=== PATIENT | male | born 1970 | race Caucasian/White ===

== ENCOUNTER 2019-06-26 06:36 | Emergency (ER) | payer BC, SELFPAY ==
--- NOTE | ~2019-06-26 | XR_ITS ---
EXAMINATION: XR chest 2V DATE: 06/26/2019 07:09 INDICATION: Chest pain TECHNIQUE: frontal and lateral views of the chest were obtained. COMPARISON: Chest radiograph dated 09/30/2010 FINDINGS: The lungs remain clear with no focal airspace opacities, pulmonary edema, pleural effusion or pneumot horax. Symmetric nipple shadows project along the caudal margin of the bilateral anterior fifth ribs. The cardiomediastinal silhouette is normal. Minimal anterior wedging of multiple vertebral bodies in the mid and lower thoracic spine. IMPRESSION: 1. No acute cardiopulmonary disease. Reviewed, dictated and finalized at location A.
--- NOTE | ~2019-06-26 | US_ITS ---
EXAMINATION: US right upper quadrant DATE: 06/26/2019 08:09 INDICATION: Right upper quadrant tenderness TECHNIQUE: Multiple grayscale and Doppler ultrasound images of the abdomen were obtained. COMPARISON: None available FINDINGS: The head and and body of the pancreas are normal. The pancreatic tail is obscured by bowel gas. The liver is normal with normal echogenicity and echotexture. No surface nodularity. Normal hepa topetal flow in the main portal vein. The gallbladder is normal with no abnormal wall thickening, per icholecystic fluid or stones. The normal common bile duct measures 4 mm. There was no sonographic Mur phy sign. IMPRESSION: 1. Normal sonographic study of the gallbladder. No sonographic correlate for the patient's symptoms. Reviewed, dictated and finalized at location B. IMPRESSION: 1. Normal sonographic study of the gallbladder. No sonographic correlate for th e patient's symptoms.
[2019-06-26 06:40] VITALS: BP 124/77; PULSE 62; RESP 18; TEMP 36.9; O2SAT 95
--- NOTE | 2019-06-26 06:42 | ECG_ITS ---
Measurements Intervals [place] Rate: 63 P: 85 NE: 168 QRS: 102 QRSD: 106 T: 65 QT: 396 QTc: 407 Interpretive Statements SINUS RHYTHM RIGHT AXIS DEVIATION INCOMPLETE RIGHT BUNDLE BRANCH BLOCK BASELINE ARTIFACT- AVR, V1 BORDERLINE ECG Electronically Signed On 06-26-2019 7:25:48 CDT by Jerome Conklin D.O.
--- NOTE | 2019-06-26 06:52 | ED.CHESTPAIN ---
HPI - Chest Pain General Chief Complaint: Chest Pain Stated Complaint: chest pain Source: patient and family Mode of arrival: ambulatory Limitations: no limitations History of Present Illness HPI narrative: Is a 49-year-old male with a history of asthma, presents with a day history of right sided chest pain reproducible the right upper rib area with no shortness of breath no fever or chills no nausea vomiting no diaphoresis. Patient is a smoker, no abdominal pain no diarrhea or constipation. MD complaint: chest pain Onset (ago): day(s) Timing of current episode: constant Prior episodes: No Onset: during rest and during exertion Pain location: right chest Pain radiation: none Severity: moderate Pain scale (0-10): 8 Quality: aching Relieving factors: nothing Exacerbating factors: exertion Risk Factors Coronary artery disease risk factors: none Thoracic aortic dissection risk factors: none Related Data Home Medications Medication Instructions Recorded Confirmed fluticasone propionate [Flovent 2 puff INHALATION DIRECTED PRN 06/26/19 06/26/19 HFA] fluticasone propionate [Flovent 2 puff INHALATION BID 06/26/19 06/26/19 HFA] montelukast 10 mg PO DAILY 06/26/19 06/26/19 Review of Systems Review of Systems: All systems reviewed & are unremarkable except as noted in HPI and below PMFSH Past Medical History Medical History Asthma Exam Const: General: no acute distress and alert Orientation/consciousness: patient oriented x3 HENMT: Head: normal to inspection Eyes: Conjunctivae: conjunctivae normal Pupils: Equal, round and reactive pupils present Neck: Neck: normal visual inspection Chest: Chest palpation & inspection: normal inspection of the chest Other: Right-sided upper rib discomfort reproducible with palpation Resp: Effort & Inspection: normal respiratory effort Auscultation: clear to auscultation bilaterally Cardio: Rate: regular rate Rhythm: regular rhythm GI: Auscultation: normal bowel sounds Extrem: General: normal to inspection Psych: Mental Status: mental status grossly normal MDM - Chest Pain ECG Data EKG #1: ECG completion date: 06/26/19 ECG completion time: 06:56 Prior ECG tracings: not available for review EKG Interpretation: RBBB Critical Care Time Critical Care Time Critical Care Time: No Discharge Plan Discharge Clinical Impression: Chest pain Patient Disposition: Still a Patient Condition: Stable Prescriptions: No Action montelukast 10 mg tablet 10 mg PO DAILY RF: 0 Flovent HFA 220 mcg/actuation HFA aerosol inhaler 2 puff INHALATION BID RF: 0 Flovent HFA 110 mcg/actuation HFA aerosol inhaler 2 puff INHALATION DIRECTED PRN (Reason: Shortness Of Breath) RF: 0 Follow-up/Referrals: Marty Donaldson M.D. [Primary Care Provider] -
--- NOTE | 2019-06-26 07:02 | ED.CHESTPAIN ---
HPI - Chest Pain General Chief Complaint: Chest Pain Stated Complaint: chest pain Time Seen by Provider: 06/26/19 07:02 Source: patient and family Mode of arrival: ambulatory Limitations: no limitations History of Present Illness HPI narrative: 49-year-old man with a history of smoking and asthma comes in today complaining of pain below his right shoulder blade that comes around to his right side and abdomen. Patient states that in the last day or 2 it has been worse particularly when laying down. He states it is worse with movement and sometimes with a deep breath but he has no exacerbation of the pain with eating or exertion. He denies nausea, vomiting, diarrhea, shortness of breath, diaphoresis, or lightheadedness. He states he has had some problems with his gallbladder in the past. The last 2 years he has undergone a cardiac workup including a catheterization which revealed no cardiac disease. MD complaint: chest pain Pertinent past history: asthma Onset (ago): day(s) Timing of current episode: constant Pain location: right chest Pain radiation: other (Right flank and abdomen) Severity: moderate Quality: aching Relieving factors: nothing Exacerbating factors: exertion Risk Factors Coronary artery disease risk factors: none Related Data Home Medications Medication Instructions Recorded Confirmed fluticasone propionate [Flovent 2 puff INHALATION DIRECTED PRN 06/26/19 06/26/19 HFA] fluticasone propionate [Flovent 2 puff INHALATION BID 06/26/19 06/26/19 HFA] montelukast 10 mg PO DAILY 06/26/19 06/26/19 Review of Systems Constitutional: Constitutional: Denies chills, Denies fatigue, Denies fever(s) and Denies weakness Eyes: Eyes: Denies change in vision and Denies photophobia ENT: Denies dysphagia, Denies nasal congestion and Denies sore throat Cardiovascular: Cardiovascular: Reports chest pain and Reports radiating jaw, neck or arm pain Respiratory: Respiratory: Reports cough, Reports dyspnea and Reports wheezing Gastrointestinal: Gastrointestinal: Reports abdominal pain, Reports diarrhea, Reports nausea and Reports vomiting Musculoskeletal: Musculoskeletal: Reports back pain, Denies arthralgias and Denies joint swelling Integumentary/Breasts: Skin/Breast: Denies pruritus, Denies erythema and Denies rash Neurologic: Denies vertigo, Denies dizziness and Denies syncope Psychiatric: Psychiatric: Denies anxiety and Denies depression Endocrine: Endocrine: Denies polydipsia and Denies polyuria Hematologic/Lymphatic: Hematologic/Lymphatic: Denies easy bleeding and Denies easy bruising Allergic/Immunologic: Allergic/Immunologic: Denies lip swelling and Denies wheezing [facility] Past Medical History Medical History Asthma Social History Social History (Updated 06/26/19 @ 08:28 by Shane Velazquez MD) Smoking status: Current every day smoker Alcohol use details: Socially Substance use: never Living arrangements: with family Exam Const: General: no acute distress and alert Orientation/consciousness: patient oriented x3 Limitations: no limitations HENMT: Head: normal to inspection Ears: external ears normal, TM's normal bilaterally and EAC's normal Mouth: Yes Normal oral and palatal mucosa present and Yes moist mucous membranes Eyes: Conjunctivae: conjunctivae normal Pupils: Equal, round and reactive pupils present EOM: EOMs intact bilaterally Resp: Effort & Inspection: normal respiratory effort and not labored Auscultation: clear to auscultation bilaterally, no rales, no rhonchi and no wheezes Cardio: Rate: regular rate Rhythm: regular rhythm Heart sounds: no murmurs GI: Auscultation: normal bowel sounds Other: [id number] tenderness to palpation the right upper quadrant. No guarding, percussion tenderness, or masses. Skin: General skin exam: normal color, no jaundice and no pallor Rashes: no rashes Neuro: Gen
[2019-06-26 07:03] LABS: Basophils Absolute Auto 0.05 K/mm3 (0.00-0.10); Basophils Percent Auto 0.6 % (0.0-1.0); Eosinophils Absolute Auto 0.16 K/mm3 (0.02-0.50); Hematocrit 43.3 % (40.0-54.0); Hemoglobin 15.5 g/dL (14.0-18.0); Immature Granulocyte Absolute 0.02 K/mm3 (0.00-0.00); Immature Granulocyte Percent A 0.3 % (0.0-0.0); Lymphocytes Absolute Auto 2.12 K/mm3 (1.10-4.50); Lymphocytes Percent Auto 27.1 % (18.0-42.0); Mean Corpuscular HGB Conc 35.8 g/dL (32.0-36.0); Mean Corpuscular Hemoglobin 34.1 pg (27.0-31.0); Mean Corpuscular Volume 95.4 fL (78.0-102.0); Mean Platelet Volume 8.6 fl (8.7-11.0); Monocytes Absolute Auto 0.77 K/mm3 (0.10-0.90); Monocytes Percent Auto 9.8 % (2.0-11.0); Neutrophils Absolute Auto 4.7 K/mm3 (1.7-7.2); Neutrophils Percent Auto 60.2 % (50.0-70.0); Platelet Count Result 242 K/mm3 (150-420); Red Blood Count 4.54 M/mm3 (4.70-6.10); Red Cell Distribution Width 12.6 % (11.6-14.4); White Blood Count 7.8 K/mm3 (4.8-10.8)
[2019-06-26 07:19] LABS: D Dimer 0.24 mg/L (0.19-0.50); Partial Thromboplastin Time 25.2 SEC (22.3-31.6); Prothrombin Time 10.8 Seconds (9.64-11.0)
[2019-06-26 07:23] LABS: Alanine Aminotransferase 82 U/L (16-63); Albumin Level 3.7 g/dL (3.4-5.0); Alkaline Phosphatase 86 U/L (46-116); Anion Gap 11.2 mmol/L (7-16); Aspartate Amino Transferase 46 U/L (15-37); Bilirubin,Total 0.6 mg/dL (0.00-1.00); Blood Urea Nitrogen 13 mg/dL (7-18); Calcium 8.9 mg/dL (8.5-10.1); Carbon Dioxide 26 mmol/L (21-32); Chloride 104 mmol/L (98-108); Estimated CRCL calculation 70 ml/min; Estimated Glomerular Filt Rate > 60; Glucose 98 mg/dL (70-99); Lipase 122 U/L (73-393); Osmolality Calculated 284 mOsm/kg (285-295); Potassium 4.2 mmol/L (3.5-5.1); Sodium 137 mmol/L (136-145); Total Protein 7.6 g/dL (6.4-8.2)
[2019-06-26 07:24] LABS: Troponin I < 0.02 ng/mL (0.00-0.056)
[2019-06-26 08:32] VITALS: BP 125/61; PULSE 60; RESP 20; O2SAT 95
== END 2019-06-26 08:37 | disposition home or self-care (01) ==
PROVIDERS: Emergency Medicine; Emergency Provider Emergency Medicine; PCP Family Medicine
DX: R07.9 Chest pain, unspecified (principal); F17.200 Nicotine dependence, unspecified, uncomplicated
CPT/HCPCS: 36415; 71046; 76705; 80053; 83690; 84484; 85025; 85380; 85610; 85730; 93005; 99284

== ENCOUNTER 2021-06-01 07:00 | Outpatient (CLI) | payer BC, OTHER, SELFPAY ==
[2021-06-01 09:22] LABS: Erythrocyte Sedimentation Rate 8 mm/hr (0-20)
[2021-06-01 10:32] LABS: RFT Charge Test YES; Rheumatoid Factor Screen Positive (Negative)
[2021-06-01 11:09] LABS: CRP < 0.5 mg/dL (0.0-0.9)
== END 2021-06-01 07:01 ==
PROVIDERS: PCP Family Medicine
DX: M79.642 Pain in left hand (principal); M79.641 Pain in right hand
CPT/HCPCS: 36415; 85652; 86140; 86430; 86431

== ENCOUNTER 2021-07-19 07:34 | Outpatient (CLI) | payer BC, OTHER, SELFPAY ==
[2021-07-19 09:15] LABS: Alanine Aminotransferase 62 U/L (16-63); Aspartate Amino Transferase 34 U/L (15-37); Prostate Specific Antigen 1.5 ng/mL (< OR = 4.0)
== END 2021-07-19 07:35 | disposition home or self-care (01) ==
LOC: CHSLAB 07:41
PROVIDERS: PCP Family Medicine; Visit Provider Nurse Practitioner Family
DX: Z12.5 Encounter for screening for malignant neoplasm of prostate (principal); M79.641 Pain in right hand; M79.642 Pain in left hand
CPT/HCPCS: 36415; 84153; 84450; 84460; G0103

== ENCOUNTER 2021-09-10 11:33 | Emergency (ER) | payer BC, OTHER, SELFPAY ==
--- NOTE | ~2021-09-10 | XR_ITS ---
XR ankle RT min 3V 09/10/2021 12:37 INDICATION: Right ankle pain PROCEDURE: 4 views right ankle COMPARISON: No prior studies for comparison. FINDINGS: Fracture, dislocation or subluxation is not identified. Ankle mortise intact. The soft tiss ues appear within normal limits. No foreign bodies are identified. IMPRESSION: 1: NO ACUTE BONE OR JOINT ABNORMALITY IDENTIFIED. Reviewed, dictated and finalized at location A.
--- NOTE | ~2021-09-10 | XR_ITS ---
XR knee RT 3V 09/10/2021 12:37 Indication: Right knee pain after twisting injury Procedure: 3 views right knee Comparison: No prior studies for comparison. Findings: There is chondrocalcinosis. Mild osteoarthritis of the patellofemoral compartment. No fract ure or traumatic malalignment. Impression: 1: Chondrocalcinosis with mild osteoarthritis of the patellofemoral compartment. Reviewed, dictated and finalized at location A. Impression: 1: Chondrocalcinosis with mild osteoarthritis of the patellofemoral compartment .
--- NOTE | 2021-09-10 11:51 | ED.SOB ---
HPI - SOB/Dyspnea General Chief Complaint: Extremity Injury, Lower Stated Complaint: knee pain Time Seen by Provider: 09/10/21 11:51 Source: patient Mode of arrival: ambulatory History of Present Illness HPI Narrative: 51-year-old male smoker with a history of asthma was diagnosed with pneumonia 10 days ago for hich she is on an antibiotic. He presents with -- ongoing cough with yellow sputum -- shortness of breath MD elicited complaint: shortness of breath and cough Related Data Home Medications Medication Instructions Recorded Confirmed fluticasone propionate 110 2 puff inhalation DIRECTED PRN 06/26/19 06/26/19 mcg/actuation HFA aerosol inhaler Shortness Of Breath (Flovent HFA) fluticasone propionate 220 2 puff inhalation BID 06/26/19 06/26/19 mcg/actuation HFA aerosol inhaler (Flovent HFA) montelukast 10 mg tablet 10 mg PO DAILY 06/26/19 06/26/19 PMFSH Past Medical History Medical History (Updated 06/27/19 @ 00:00 by Emil Cannon) Asthma Social History Social History (Updated 06/26/19 @ 08:28 by Shane Velazquez MD) Smoking status: Current every day smoker Alcohol use details: Socially Substance use: never Discharge Plan Discharge Prescriptions: No Action montelukast 10 mg tablet 10 mg PO DAILY Flovent HFA 220 mcg/actuation HFA aerosol inhaler 2 puff INHALATION BID Flovent HFA 110 mcg/actuation HFA aerosol inhaler 2 puff INHALATION DIRECTED PRN (Reason: Shortness Of Breath) Follow-up/Referrals: Marty Donaldson M.D. [Primary Care Provider] -
[2021-09-10 11:57] VITALS: BP 108/69; PULSE 77; RESP 18; TEMP 36.6; O2SAT 97
--- NOTE | 2021-09-10 12:03 | ED.LOWEXIN ---
HPI - Extremity Injury (Lower) General Chief Complaint: Extremity Injury, Lower Stated Complaint: knee pain Time Seen by Provider: 09/10/21 11:51 Source: patient Mode of arrival: ambulatory History of Present Illness HPI Narrative: 51-year-old male smoker with a history of asthma, negative cardiac catheterization twisted his right lower extremity 2-3 weeks ago. He presents to the ER with -- right knee pain with intermittent swelling off and on for the past 1 week -- right ankle pain off and on for the past 1 week after he twisted his right ankle. The patient is ambulatory. MD complaint: knee injury and ankle injury Onset (ago): week(s) ( Pain off and on for the past 1 week after he twisted his ankle 2-3 weeks ago) Injury: Right: knee and ankle Type of Injury: inversion Place: street/outdoors Severity: mild Relieving factors: immobilization Exacerbating factors: movement Associated symptoms: swelling Other symptoms: none Treatments prior to arrival: cold therapy Related Data Home Medications Medication Instructions Recorded Confirmed fluticasone propionate 110 2 puff inhalation DIRECTED PRN 06/26/19 09/10/21 mcg/actuation HFA aerosol inhaler Shortness Of Breath (Flovent HFA) montelukast 10 mg tablet 10 mg PO DAILY 06/26/19 09/10/21 celecoxib 200 mg capsule 1 cap BID 09/10/21 09/10/21 clobetasol 0.05 % topical ointment 1 ea topical TID 09/10/21 09/10/21 Allergies Allergy/AdvReac Type Severity Reaction Status Date / Time No Known Allergies Allergy Verified 09/10/21 12:07 Review of Systems Review of Systems: All systems reviewed & are unremarkable except as noted in HPI and below Constitutional: Constitutional: Reports as per HPI and Reports no additional constitutional complaints Eyes: Eyes: Reports as per HPI and Reports no additional eye complaints ENT: Reports system reviewed and no additional complaints, except as documented and Reports as per HPI Cardiovascular: Cardiovascular: Reports as per HPI and Reports no additional cardiovascular complaints Respiratory: Respiratory: Reports as per HPI and Reports no additional respiratory complaints Gastrointestinal: Gastrointestinal: Reports as per HPI and Reports no additional gastrointestinal complaints Genitourinary: Genitourinary: Reports no additional male genitourinary complaints and Reports as per HPI Musculoskeletal: Musculoskeletal: Reports no additional musculoskeletal complaints and Reports as per HPI Comments: right ankle and knee pain with swelling Integumentary/Breasts: Skin/Breast: Reports system reviewed and no additional complaints, except as docu and Reports as per HPI Neurologic: Reports system reviewed and no additional complaints, except as documented and Reports as per HPI Psychiatric: Psychiatric: Reports no additional psychiatric complaints and Reports as per HPI Endocrine: Endocrine: Reports no additional endocrine complaints and Reports as per HPI Hematologic/Lymphatic: Hematologic/Lymphatic: Reports no additional hematologic/lymphatic complaints and Reports as per HPI Allergic/Immunologic: Allergic/Immunologic: Reports no additional allergic/immunologic complaints and Reports as per HPI [facility] Past Medical History Medical History (Updated 09/10/21 @ 12:50 by Bipin Palmer MD) Asthma Social History Social History Smoking status: Current every day smoker Alcohol use details: Socially Substance use: never Exam Const: General: healthy appearing, no acute distress and alert Nutritional Appearance: well nourished Orientation/consciousness: patient oriented x3 Limitations: no limitations HENMT: Head: normal to inspection Ears: external ears normal General nose exam: Normal external nose present Face and sinus: normal facial exam Mouth: Yes Normal oral and palatal mucosa present Throat: posterior oropharynx normal Eyes: Conjunctivae: conjunctiv
--- NOTE | 2021-09-10 12:10 | PC.NURSE ---
Pt pre-registered OPTICAL MANAGER at 's request. Arrived at 11:55
[2021-09-10 12:57] VITALS: BP 124/81; PULSE 86; RESP 16; TEMP 36.8; O2SAT 97
== END 2021-09-10 12:57 | disposition home or self-care (01) ==
PROVIDERS: Emergency Provider Internal Medicine Critical Care Medicine; PCP Family Medicine
DX: M11.261 Other chondrocalcinosis, right knee (principal); M25.561 Pain in right knee; S93.401A Sprain of unspecified ligament of right ankle, initial encounter
CPT/HCPCS: 73562; 73610; 99284

== ENCOUNTER 2022-09-03 07:20 | Outpatient (CLI) | payer BC, OTHER, SELFPAY ==
[2022-09-03 08:34] LABS: Alanine Aminotransferase 36 U/L (16-63); Albumin Level 3.6 g/dL (3.4-5.0); Alkaline Phosphatase 104 U/L (46-116); Anion Gap -2 mmol/L (8-16); Aspartate Amino Transferase 28 U/L (15-37); Bilirubin,Total 0.4 mg/dL (0.00-1.00); Blood Urea Nitrogen 24 mg/dL (7-18); Calcium 8.5 mg/dL (8.5-10.1); Carbon Dioxide 28 mmol/L (21-32); Chloride 97 mmol/L (98-108); Cholesterol 141 mg/dL (0-200); Estimated Glomerular Filt Rate > 60; Glucose 89 mg/dL (70-99); HDL Direct 60 mg/dL (40-60); LDL Cholesterol Calculated 68 mg/dL (<130); Osmolality Calculated 259 mOsm/kg (285-295); Potassium 3.7 mmol/L (3.5-5.1); Prostate Specific Antigen 1.7 ng/mL (< OR = 4.0); Sodium 123 mmol/L (136-145); Total Protein 7.2 g/dL (6.4-8.2); Triglycerides 67 mg/dL (0-150)
== END 2022-09-03 07:21 | disposition home or self-care (01) ==
LOC: CHSLAB 07:23
PROVIDERS: PCP Family Medicine; Visit Provider Family Medicine
DX: Z13.220 Encounter for screening for lipoid disorders (principal); Z12.5 Encounter for screening for malignant neoplasm of prostate
CPT/HCPCS: 36415; 80053; 80061; 84153; G0103

== ENCOUNTER 2022-09-03 07:28 | Outpatient (CLI) | payer OTHER, SELFPAY ==
--- NOTE | ~2022-09-03 | XR_ITS ---
EXAMINATION: XR_[id number]_CR DATE: 09/03/2022 08:11 INDICATION: Displaced fracture of lateral condyle. TECHNIQUE: 2 views of right knee were obtained. COMPARISON: Right knee radiographs 04/15/22 FINDINGS: Bone alignment is normal. There is a nondisplaced oblique fracture of tibial metaphysis. Th ere is mild tricompartmental osteoarthritis characterized by tiny osteophytes. There is chondrocalcin osis of the menisci. There is a small knee joint effusion. IMPRESSION: 1. Nondisplaced oblique fracture of tibial metaphysis. 2. Mild right knee osteoarthritis. 3. Small right knee joint effusion. Reviewed, dictated and finalized at location A.
== END 2022-09-03 07:29 | disposition home or self-care (01) ==
LOC: CHSIMG 07:31
PROVIDERS: PCP Family Medicine; Visit Provider Orthopaedic Surgery
DX: S82.121A Displaced fracture of lateral condyle of right tibia, initial encounter for closed fracture (principal); M17.11 Unilateral primary osteoarthritis, right knee; M25.461 Effusion, right knee
CPT/HCPCS: 73560

== ENCOUNTER 2022-10-15 07:36 | Outpatient (CLI) | payer OTHER, SELFPAY ==
--- NOTE | ~2022-10-15 | XR_ITS ---
Right Knee Technique: AP, lateral, and sunrise views were obtained. Clinical History: Injury Findings: No fracture or dislocation is seen. Osseous alignment is anatomic. Minimal patellar spurrin g noted. Chondrocalcinosis of the menisci noted. No joint effusion is seen. Impression: No acute abnormality. Minimal patellar spurring. Chondrocalcinosis of the menisci. Reviewed, dictated and finalized at location M. Impression: No acute abnormality. Minimal patellar spurring. Chondrocalcinosis of the menisci.
== END 2022-10-15 07:37 | disposition home or self-care (01) ==
PROVIDERS: PCP Family Medicine; Visit Provider Orthopaedic Surgery
DX: S62.121A Displaced fracture of lunate [semilunar], right wrist, initial encounter for closed fracture (principal); M11.261 Other chondrocalcinosis, right knee
CPT/HCPCS: 73562

== ENCOUNTER 2023-02-04 07:21 | Outpatient (CLI) | payer OTHER, SELFPAY ==
--- NOTE | ~2023-02-04 | XR_ITS ---
Right Knee Technique: AP, lateral, and sunrise views were obtained. Clinical History: Lateral tibial fracture COMPARISON: 10/15/2022 Findings: No fracture or dislocation is seen. Osseous alignment is anatomic. Joint spaces are preserv ed without degenerative or erosive change. Chondrocalcinosis of the menisci noted. No joint effusion is seen. Impression: No acute reality seen. Chondrocalcinosis of the menisci. Reviewed, dictated and finalized at location M. ER ASSISTANT Impression: No acute reality seen. Chondrocalcinosis of the menisci.
== END 2023-02-04 07:22 | disposition home or self-care (01) ==
PROVIDERS: PCP Family Medicine; Visit Provider Orthopaedic Surgery
DX: S82.121A Displaced fracture of lateral condyle of right tibia, initial encounter for closed fracture (principal); M11.261 Other chondrocalcinosis, right knee
CPT/HCPCS: 73562

== ENCOUNTER 2023-02-16 08:11 | Outpatient (CLI) | payer OTHER, SELFPAY ==
--- NOTE | ~2023-02-16 | MR_ITS ---
EXAMINATION: MR knee RT wo con DATE: 02/16/2023 09:02 INDICATION: Other tear of lateral meniscus. Posterior knee pain. TECHNIQUE: Magnetic resonance imaging (MRI) of the right knee was performed without intravenous contr ast. Sequences included axial PD-weighted FS FSE, coronal PD-weighted FSE and PD-weighted FS FSE, sag ittal PD-weighted FSE, and sagittal T2-weighted FS FSE. COMPARISON: Right knee radiographs 02/04/2023 FINDINGS: Osseous/other: There is a comminuted fracture of proximal tibia involving the medial and lateral condyles, intercond ylar eminence, and medial metaphysis. At the lateral tibial condyle, there is up to 4 mm depression o f the articular surface. There is edema-like marrow signal intensity around the fracture lines. There is edema-like marrow signal intensity at medial aspect of medial femoral condyle, likely stress reac tion. Medial compartment: There is a radial tear of body of medial meniscus. There is cartilage surface irregularity of tibial condyle. Lateral compartment: There is a complex tear involving the anterior horn, body, and posterior horn of lateral meniscus. Th ere is partial-thickness cartilage loss of femoral condyle and tibial condyle, deep at posterior tibi al condyle. Patellofemoral compartment: There is deep cartilage fissuring of patellar medial facet and lateral facet. There is cartilage surf herman irregularity of patellar median ridge. Trochlear cartilage is normal. Ligaments and tendons: The anterior and posterior cruciate ligaments are normal. Medial collateral ligament is intact. There are changes of prior sprain of fibular collateral ligament characterized by thickening and increased signal intensity. There is mild patellar tendinopathy. Fluid: There is a small knee joint effusion. There is a small Rice's cyst. IMPRESSION: 1. Subacute bicondylar tibial plateau fracture. 2. Moderate chondrosis of lateral and patellofemoral compartments and mild chondrosis of medial benita rtment. 3. Tears of medial and lateral menisci. 4. Small knee joint effusion. 5. Small Rice's cyst. Reviewed, dictated and finalized at location A. OLOGY ASSISTANT IMPRESSION: 1. Subacute bicondylar tibial plateau fracture. 2. Moderate chondrosis of lateral and patellofemoral compartments and mild delfino drosis of medial compartment. 3. Tears of medial and lateral menisci. 4. Small knee joint effusion. 5. Small Rice's cyst.
== END 2023-02-16 08:12 | disposition home or self-care (01) ==
LOC: CHSIMG 08:12
PROVIDERS: PCP Orthopaedic Surgery; Visit Provider Orthopaedic Surgery
DX: S82.141A Displaced bicondylar fracture of right tibia, initial encounter for closed fracture (principal); M22.2X1 Patellofemoral disorders, right knee; S83.241A Other tear of medial meniscus, current injury, right knee, initial encounter; S83.281A Other tear of lateral meniscus, current injury, right knee, initial encounter; M25.461 Effusion, right knee; M71.21 Synovial cyst of popliteal space [Baker], right knee
CPT/HCPCS: 73721

== ENCOUNTER 2023-03-20 10:40 | Outpatient (CLI) | payer OTHER, SELFPAY ==
--- NOTE | 2023-03-20 10:42 | ECG_ITS ---
Measurements Intervals [place] Rate: 69 P: 80 RI: 144 QRS: 113 QRSD: 121 T: 55 QT: 389 QTc: 418 Interpretive Statements SINUS RHYTHM WITH PREMATURE ATRIAL CONTRACTION RIGHT VENTRICULAR HYPERTROPHY NONSPECIFIC INTRAVENTRICULAR CONDUCTION DELAY ABNORMAL ECG COMPARED TO ECG 06/26/2019 06:44:21 PREMATURE ATRIAL CONTRACTIONS ARE NOW PRESENT RIGHT VENTRICULAR HYPERTROPHY NOW PRESENT Electronically Signed On 03-20-2023 15:26:04 TURNSTILE COLLECTOR by Jass Meade M.D.
== END 2023-03-20 10:41 | disposition home or self-care (01) ==
LOC: CHSCARD 10:42
PROVIDERS: PCP Family Medicine; Visit Provider Anesthesiology
DX: Z01.818 Encounter for other preprocedural examination (principal); F17.210 Nicotine dependence, cigarettes, uncomplicated; R94.31 Abnormal electrocardiogram [ECG] [EKG]
CPT/HCPCS: 93005

== ENCOUNTER 2023-03-21 00:26 | Day surgery (SDC) | payer OTHER, SELFPAY ==
[2023-03-18 12:06] VITALS: BMI 26.2
--- NOTE | 2023-03-18 12:11 | PC.NURSE ---
Report to the Outpatient Waiting Room, entrance under the green pavilion located off [facility], at time 1100 on date 03/21/23. Planned Procedure Time: 1300. Time changes happen often and if your time is changed the preop area will call you the afternoon before. - You and your visitor will be asked to self-screen and do not enter if you have any COVID symptoms. - A mask is optional within the hospital at this time. Patients may have clear liquids (water, carbonated beverages, clear teas, apple juice) until 3 hours prior to surgery with a maximum of 20 ounces. - No food from midnight until time of surgery Take the following medications with a SIP of water the morning of surgery: N/A DO NOT STOP ANY OF YOUR OTHER PRESCRIPTION MEDICATIONS PRIOR TO SURGERY ?EXCEPT THE FOLLOWING Medications to discontinue per physician: N/A Date to take last dose: N/A Please no make-up, nail kiswahili, hairspray, perfume, deodorant, or body powder the day of surgery. No jewelry (including any body piercings) or valuables the day of surgery, leave them at home. Please take a shower or bath the night before, or the morning of, surgery with an antibacterial soap. Wear comfortable, loose fitting clothing. - Jewelry must be removed prior to entering the operating room. Rings and piercings that are not removed may be cut off. - The hospital will not accept responsibility for valuables. - Please leave all valuables, including medications, at home the day of surgery. If you are going home after surgery, a licensed sanitation truck driver must drive you home. - NO public transportation without another adult if you receive anesthesia. - We recommend that an adult stay with you for 24 hours following discharge. - We also recommend that you do not drive, make important decision, drink alcoholic beverages, or take any drugs that were not prescribed by your health care provider for at least 24 hours after your discharge time. Follow any additional instructions given to you from your surgeon. If you or anyone in your household have experienced Covid symptoms in the past week, please notify your surgeon or the nurse liaison at the phone number below for possible testing. Telephone instructions given to PT - BJ ENG and asked if any additional questions and then verbalized understanding. Patient advised to call surgeon office or pre surgery nurse liaison [phone] if any additional questions.
--- NOTE | 2023-03-20 13:56 | P.PNAN_ITS ---
Anes - Initial Pre Proc Eval Procedure: Operation Date: 03/21/23 13:00 Proposed Procedures p Right Knee Arthroscopy with Partial Meniscectomy, Debride Meniscus Chondroplasty, Synovectomy, Proceed As Indicated - Filiberto Kyle MD Date/Time: 03/20/23 13:56 Surgeon: Filiberto Kyle MD Pre Op Diagnosis: rt knee pain, rt meniscal tear,chondromalacia-cont Patient Data Age: 53 Gender: M Height: 1.69 m Weight: 74.85 kg Allergies Allergy/AdvReac Type Severity Reaction Status Date / Time No Known Allergies Allergy Verified 03/18/23 12:05 Home Medications Medication Instructions Recorded Confirmed Type No Home Medications 03/18/23 03/18/23 History Patient hx anesthesia problems: none Family hx anesthesia problems: none Results Review: All pre-operative results and documents have been reviewed as part of the pre- operative evaluation. [facility] Past Medical History Medical History (Updated 03/20/23 @ 13:56 by Abbe May DO) Arrhythmia Asthma Closed fracture of lateral portion of right tibial plateau RBBB Tear of meniscus of right knee Family History Family History Unknown Diabetes mellitus Cerebrovascular accident Lung disease Social History Social History Smoking packs per day: 1 Smoking cigarettes per day: 20.0 Years smoked: 35 Smoking pack-years: 35.00 Smoking status: Current every day smoker Tobacco type: cigarettes Alcohol intake: current Alcohol use details: RARE Substance use: never Substance use type: does not use Living arrangements: with family Occupation/Education: occupation Additional occupation/education comments: [employer] Gender identity (if verbalized by the patient): Male Sexual Orientation (if Verbalized by the Patient): Straight or Heterosexual Spiritual care concerns: No Anes - Eval Final PreProcedure Day of Procedure 03/20/23 13:56 Patient weight: overweight Heart: regular rate and rhythm Lungs: clear to auscultation Airway: Mallampati scale class II Neurological: alert and oriented Last oral intake: >/= 8 hours ASA classification: III Emergent: no Anesthetic plan: proceed Anesthesia type and monitoring: general LMA and standard monitoring Results Review: All pre-operative results and documents have been reviewed as part of the pre- operative evaluation. Informed Consent: The patient's anesthetic plan and its attendant risks and benefits were discussed with the patient/family/POA. Questions were solicited and answers provided to the satisfaction of the patient/family/POA.
[2023-03-21] VITALS (8 sets, daily range): BP systolic 108–129; BP diastolic 66–83; PULSE 59–93; RESP 13–18; TEMP 36.6–36.7; O2SAT 93–100
[2023-03-21] MEDS: LACTATED RINGERS 1,000 ML 30 ML IV CONT ×2 (11:15→14:12)
--- NOTE | 2023-03-21 11:16 | WPDHPUPDATE1 ---
History and Physical Update Update Date/Time: 03/21/23 11:16 History and Physical has been reviewed, including an updated exam of the patient. There are NO changes in the patient's condition. Risks, benefits, and alternatives have been discussed and questions answered. Patient agrees to proceed with procedure.
[2023-03-21] MEDS: KETOROLAC 15 MG/ML VIAL (*BKC) IV PUSH (12:21)
[2023-03-21] MEDS: ACETAMINOPHEN 500 MG TABLET 1000 MG PO (12:21)
[2023-03-21] MEDS: ceFAZolin 2 GM/D5W 50 ML 2 GM/50 ML BAG IVPB (13:03)
[2023-03-21] MEDS: BUPivacaine HCL 0.25% PF 30 ML VIAL 10 ML INFILTRATE (13:34)
[2023-03-21] MEDS: BUPIVACAINE/EPINEPHRINE 0.5% 50 ML VIAL 10 ML INFILTRATE (13:34)
--- NOTE | 2023-03-21 14:21 | P.OP_ITS ---
Procedure Note - Detailed Date of Procedure 03/21/23 Pre-op Diagnosis rt knee pain, rt meniscal tear,chondromalacia-cont Post-op Diagnosis Same Procedure Performed Right knee arthroscopy with synovectomy, medial and lateral partial menisc ectomy. Surgeon Filiberto Kyle MD Anesthesia General Indications 53-year-old who fell and injured his right knee while at work. Noted to have a lateral tibial plateau fracture treated non operatively. He has gone on to heal the fracture but has continued pain at the knee. MRI demonstrates meniscus tear with good healing of fracture. He presents for operative treatment. Findings Right knee body and anterior horn lateral meniscus tear, complex with displacement into the joint. Posterior horn medial meniscus tear, complex minimal displacement. Both meniscus tears unrepairable. Intact ACL PCL. Grade 1 chondromalacia medial femoral condyle. Grade 1 chondromalacia patellofemoral articulation. Extensive synovitis anterior knee medial and lateral compartments. Description of Procedure Patient failed non operative treatment with therapy, home exercises, activity modifications and anti-inflammatories. Pain on a daily basis with weight- bearing activity. Presents now for operative treatment. Informed consent given by patient. Operative extremity marked in preoperative holding area. Patient received intravenous antibiotics. Patient brought to operating room and underwent general anesthetic by anesthesia team. Positioned supine on operating room table. Right leg placed into a posterior thigh leg somers. Foot of the table dropped to 90? and left leg padded out of the field. Time-out performed confirming patient, site of surgery and plan. right knee prepped and draped in usual sterile surgical fashion using ChloraPrep skin solution. Standard arthroscopic portals made by using a 11 blade knife for the anterior lateral portal 1st. Capsule penetrated bluntly. Camera and inflow started. The above operative findings noted. Intra-articular visualization used to position the anterior medial portal using 22 gauge spinal needle. A 11 blade knife used for the skin and blunt penetration of the capsule. 4.7 millimeter arthroscopic shaver introduced and partial medial meniscectomy of the loose and torn portion performed. Shaver then positioned in the lateral compartment and partial lateral meniscectomy performed. Edge of meniscus completed with arthroscopic Wand. Arthroscopic Wand used to perform chondroplasty of the patellofemoral articulation and the medial femoral condyle. Shaver reintroduced and a synovectomy performed of the anterior fat pad and extensive synovium as well as medial and lateral plica. Bleeding points coagulated with Wand. Knee inspected, no loose pieces noted. 1 liter of irrigant infused and suction out. Arthroscopic cannulas removed. Skin closed with 4 nylon interrupted suture. Local anesthetic with 0.25% Marcaine. Sterile dressing applied. Patient awoken from anesthesia, extubated and taken to recovery room in stable condition. All sponge needle and instrument counts correct at the end of the case. Estimated Blood Loss 5 Tourniquet Time Total Tourniquet Time: 0 Drains No Packing No Pathology None sent Complications None Condition Stable Disposition PACU [facility] Billing Surgery - Charge Forward: Surgery Billing ([id number], [id number])
== END 2023-03-21 16:01 | disposition home or self-care (01) ==
PROVIDERS: PCP Family Medicine; Visit Provider Orthopaedic Surgery
PROC: (CPT 29870; principal; 2023-03-21 13:00)
DX: S83.271A Complex tear of lateral meniscus, current injury, right knee, initial encounter (principal); S83.231A Complex tear of medial meniscus, current injury, right knee, initial encounter; M22.41 Chondromalacia patellae, right knee; M65.861 Other synovitis and tenosynovitis, right lower leg; W11.XXXA Fall on and from ladder, initial encounter; Y92.9 Unspecified place or not applicable; Y99.0 Civilian activity done for income or pay; F17.210 Nicotine dependence, cigarettes, uncomplicated
CPT/HCPCS: 29880; A9270; J0690; J1100; J1885; J2250; J2405; J2704; J3010; J7120

== ENCOUNTER 2023-05-12 11:53 | Emergency (ER) | payer BC, OTHER, SELFPAY ==
[2023-05-12] VITALS (23 sets, daily range): BP systolic 123–140; BP diastolic 71–87; PULSE 57–67; RESP 12–19; TEMP 36.4–36.9; O2SAT 96–100
--- NOTE | ~2023-05-12 | CT_ITS ---
EXAMINATION: CT chest abdomen pelvis w con DATE: 05/12/2023 12:59 INDICATION: Retrosternal, epigastric, and right upper quadrant abdominal pain. TECHNIQUE: Computed tomography (CT) of the chest and abdomen and pelvis was performed with 100 mL Omn ipaque 350 intravenous contrast. Pelvis The dose-length product was 496.53 mGy-cm. COMPARISON: None FINDINGS: CHEST CT: There is mild emphysema. A calcified left lung nodule is consistent with old granulomatous disease. T here is mild dependent atelectasis bilaterally. There is mild scarring in paraspinal right lower lobe . No pleural effusion. There are nodules in the thyroid measuring up to 12 mm, likely not clinically significant. The heart size is normal. No pericardial effusion. There are no pathologically enlarged lymph nodes. There is mild thoracic spondylosis. There is a chronic compression fracture of T10. ABDOMEN AND PELVIS CT: The liver, gallbladder, spleen, pancreas, adrenal glands, and kidneys are normal. There are no dilate d loops of bowel. The appendix is normal. Aortic atherosclerosis is noted. There are no pathologicall y enlarged lymph nodes. There is trace pelvic ascites. There is mild lumbar spondylosis. IMPRESSION: 1. No etiology for the patient's symptoms. Reviewed, dictated and finalized at location A. L OPERATIONS TECHNICIAN
--- NOTE | 2023-05-12 11:54 | ECG_ITS ---
Measurements Intervals [place] Rate: 59 P: 72 VA: 168 QRS: 93 QRSD: 126 T: 69 QT: 443 QTc: 439 Interpretive Statements SINUS BRADYCARDIA INTRAVENTRICULAR CONDUCTION DELAY ABNORMAL ECG COMPARED TO ECG 03/20/2023 10:56:05 SINUS BRADYCARDIA NOW PRESENT Electronically Signed On 05-12-2023 12:38:32 ADVERTISING CAMPAIGN MANAGER by Shayan Ascencio M.D.
[2023-05-12 12:13] LABS: Basophils Absolute Auto 0.04 K/mm3 (0.00-0.10); Basophils Percent Auto 0.5 % (0.0-1.0); Eosinophils Percent Auto 3.6 % (1.0-6.0); Hematocrit 42.1 % (40.0-54.0); Hemoglobin 14.4 g/dL (14.0-18.0); Immature Granulocyte Absolute 0.01 K/mm3 (0.00-0.00); Immature Granulocyte Percent A 0.1 % (0.0-0.0); Lymphocytes Percent Auto 20.4 % (18.0-42.0); Mean Corpuscular HGB Conc 34.2 g/dL (32.0-36.0); Mean Corpuscular Hemoglobin 32.4 pg (27.0-31.0); Mean Corpuscular Volume 94.8 fL (78.0-102.0); Monocytes Absolute Auto 0.56 K/mm3 (0.10-0.90); Monocytes Percent Auto 6.7 % (2.0-11.0); Neutrophils Absolute Auto 5.7 K/mm3 (1.7-7.2); Neutrophils Percent Auto 68.7 % (50.0-70.0); Platelet Count Result 219 K/mm3 (150-420); Red Blood Count 4.44 M/mm3 (4.70-6.10); Red Cell Distribution Width 12.2 % (11.6-14.4); White Blood Count 8.3 K/mm3 (4.8-10.8)
--- NOTE | 2023-05-12 12:16 | ED.CHESTPAIN ---
HPI - Chest Pain General Chief Complaint: Chest Pain Stated Complaint: chest pain Time Seen by Provider: 05/12/23 11:57 History of Present Illness HPI narrative: 53 years old white male came to the emergency room by private car with his complaining of retrosternal heaviness started within 1 hour prior to arrival while sitting doing no activities. Patient denies aggravating or relieving factors. Patient reports slight shortness of breath with diaphoresis. Pain was 9/10 currently 6/10. Patient did not take any medications until now. Patient is healthy otherwise, history of left knee issues and used to be alcoholic, quit months/years ago, no family history of coronary artery disease. Patient smokes cigarettes denied drug use. Patient denies any physical activity before the beginning of the symptoms. Related Data Allergies Allergy/AdvReac Type Severity Reaction Status Date / Time No Known Allergies Allergy Verified 04/29/23 08:57 Review of Systems Review of Systems: All systems reviewed & are unremarkable except as noted in HPI and below PMFSH Past Medical History Medical History Arrhythmia Asthma Closed fracture of lateral portion of right tibial plateau RBBB Tear of meniscus of right knee Family History Family History Unknown Diabetes mellitus Cerebrovascular accident Lung disease Social History Social History Smoking packs per day: 1 Smoking cigarettes per day: 20.0 Years smoked: 35 Smoking pack-years: 35.00 Smoking status: Current every day smoker Tobacco type: cigarettes Alcohol intake: current Alcohol use details: RARE Substance use: never Substance use type: does not use Living arrangements: with family Occupation/Education: occupation Additional occupation/education comments: [employer] Gender identity (if verbalized by the patient): Male Sexual Orientation (if Verbalized by the Patient): Straight or Heterosexual Spiritual care concerns: No Exam Narrative: General appearance: Well-developed, well-nourished Skin: Normal color Head: Normocephalic, nontraumatic Eyes: Clear conjunctiva ENT: Oropharynx normal, ears normal, nose normal Neck: Supple, nontender Chest and respiratory: Airway patent, no respiratory distress, no accessory muscle use Heart: Regular rate/rhythm Abdomen: Soft, Epigastric tenderness, right upper quadrant tenderness Vascular: Normal peripheral pulses, normal capillary refill. Musculoskeletal: Normal range of motion, nontender back Neurologic: Alert and oriented ?3, ROVING CAN TENDER is normal as tested, no gross motor deficit Course Reevaluation(s) Reevaluation #1: PATIENT REPORTED THAT HIS PAIN IS 4/10 AT LEFT UPPER QUADRANT. HE DENIES ANY CHEST PAIN AT THIS TIME. Date: 05/12/23 Time: 15:16 Vital Signs Vital signs: Vital Signs Temperature 36.4 C L 05/12/23 12:00 Pulse Rate 58 L 05/12/23 12:00 Respiratory Rate 18 05/12/23 12:00 Blood Pressure 128/83 05/12/23 12:00 Pulse Oximetry 99 05/12/23 12:00 Oxygen Delivery Room Air 05/12/23 12:00 Temperature 36.8 C 05/12/23 14:16 Pulse Rate 61 05/12/23 15:43 Respiratory Rate 16 05/12/23 15:43 Blood Pressure 123/71 05/12/23 15:43 Pulse Oximetry 98 05/12/23 15:30 Oxygen Delivery Room Air 05/12/23 15:43 MDM - Chest Pain MDM Narrative Medical decision making narrative: 53 YEARS OLD WHITE MALE CAME WITH SUDDEN ONSET RETROSTERNAL TIGHTNESS HEAVINESS STARTED WHILE HE SITTING DOING NOTHING. THE ASSOCIATED WITH DIAPHORESIS M
[2023-05-12] MEDS: SODIUM CHLORIDE 0.9% IV 1,000 ML 999 ML IV CONT (12:19)
[2023-05-12] MEDS: MORPHINE SULFATE (*CRX) 4 MG/ML INJ IV PUSH (12:21)
[2023-05-12] MEDS: ONDANSETRON INJ 4 MG/2 ML VIAL IV PUSH (12:22)
[2023-05-12 12:30] LABS: D Dimer 0.19 mg/L (0.19-0.50); Partial Thromboplastin Time 23.5 SEC (23.90-30.70); Prothrombin Time 10.9 Seconds (9.50-12.10)
[2023-05-12 12:36] LABS: Alanine Aminotransferase 39 U/L (16-63); Albumin Level 3.6 g/dL (3.4-5.0); Alkaline Phosphatase 85 U/L (46-116); Anion Gap 6 mmol/L (8-16); Aspartate Amino Transferase 26 U/L (15-37); Bilirubin,Total 0.4 mg/dL (0.00-1.00); Blood Urea Nitrogen 17 mg/dL (7-18); Calcium 8.8 mg/dL (8.5-10.1); Carbon Dioxide 31 mmol/L (21-32); Chloride 101 mmol/L (98-108); Estimated CRCL calculation 69 ml/min; Estimated Glomerular Filt Rate > 60; Glucose 128 mg/dL (70-99); Lipase 32 U/L (16-77); Osmolality Calculated 289 mOsm/kg (285-295); Potassium 3.9 mmol/L (3.5-5.1); Sodium 138 mmol/L (136-145); Total Protein 7.2 g/dL (6.4-8.2); Troponin I 5.7 ng/L (0.00-60.4)
[2023-05-12 12:38] LABS: Ethanol < 3 mg/dL (0-6)
[2023-05-12] MEDS: MAG HYDROX/ALUMINUM HYD/SIMETH 30 ML, PHENobarb/HYOSCY/ATROPINE/SCOP 32.4 MG, LIDOCAINE... PO (12:44)
[2023-05-12 13:46] LABS: Bilirubin Urine Negative (Negative); Blood Urine Negative (Negative); Color Urine Light Yellow (Yellow); Glucose Urine UA Negative (Negative); Ketones Urine Negative (Negative); Leukocyte Esterase Ur Negative LEU/UL (Negative); Nitrate Urine Negative (Negative); Protein Urine Negative (Negative); Specific Grav Ur 1.015 (1.010-1.020); Urobilinogen Urine 0.2 mg/dL (0.2-1.0)
[2023-05-12 13:53] LABS: Add Urine Microscopic? NO; Appearance Urine Slightly Cloudy (Clear)
[2023-05-12 15:45] LABS: Troponin I 4.9 ng/L (0.00-60.4)
--- NOTE | 2023-05-12 15:46 | PC.NURSE ---
pt insistent on taking monitoring wires off. unhooked as requested after explanation of need to monitor. pt wanting to go home
[2023-05-16 10:52] LABS: Free T4 Free Thyroxine 0.96 ng/dL (0.76-1.46); Thyroid Stimulating Hormone 0.27 uIU/mL (0.36-3.74)
== END 2023-05-12 15:50 | disposition left against medical advice (07) ==
PROVIDERS: Emergency Provider Emergency Medicine; PCP Family Medicine
DX: R07.9 Chest pain, unspecified (principal); R10.9 Unspecified abdominal pain; F17.210 Nicotine dependence, cigarettes, uncomplicated
CPT/HCPCS: 36415; 71260; 74177; 80053; 80307; 81003; 83690; 84439; 84443; 84484; 85025; 85380; 85610; 85730; 93005; 96374; 96375; 99284; A9270; J2270; J2405; J7030; Q9967

== ENCOUNTER 2024-04-28 00:13 | Day surgery (SDC) | payer OTHER, SELFPAY ==
[2024-04-15 15:55] VITALS: BMI 26.6
--- OUTSIDE RECORDS SUMMARY | 2024-04-28 00:17 | XMS_ITS | Encounter Summary ---
Author Organization [facility] Address [address] [place] [address]. [place] [address] [place] [address] Care Team Providers Care Mechanical Commissioning Engineer Name Role Phone Marty Donaldson MD Primary Care Provider Moshe Lane MD Unavailable Unavailab le Encounter Details Date Type Department Care Team (Late st Contact Info) Description 01/09/2016 Abstract [facility] [address] [place] [address] MD Social History Tobacco Use Types Packs/Day Years Used Date Smoking Tobacco: Every Day Sex and Gender Information Value Date Recorded Sex Assigned at Not on file Legal Sex Male 12:31 PM CDT Gender Identity Not on file Sexual Orientation Not on file 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
--- OUTSIDE RECORDS SUMMARY | 2024-04-28 00:17 | XMS_ITS | Data Portability ---
Author Organization [facility], [address] [place] [address] ([place]) Address [address] [place] [id number] Care Team Providers Care Vocational Training Director Name Role Phone JUAN LUIS LINDA Primary Care Provider [phone] RED SAGASTUME Referring Provider Assessment Encounter Date Assessment Date Assessment LastModified by Organization Details LastModified Time 11/05/2023 11/05/2023 PREOPERATIVE DIAGNOSIS: Left medial bulbar conjunctival lesion extending to corneal-scleral limbus, of uncertain behavior with history of irritation, and conjunctival scarring. POSTOPERATIVE DIAGNOSIS: PROCEDURE: Excision of left medial bulbar conjunctival/ corneal/limbal/s cleral lesion with simple closure.; conjunctival injection of 5 fu. SURGEON: Siri Lamar MD. ANESTHESIA: Local under MAC. COMPLICATIONS: None. ESTIMATED BLOOD LOSS: Minimal. PROCEDURE IN DETAIL: The risks, benefits, and alternatives were discussed with the patient. The risks of the procedure include but are not limited to: bleeding, infection, swelling, pain, numbness, vision loss, double vision, tearing, dry eyes, eyelid malposition, scarring, disfigurement, eyelash loss, failure to solve problem or possible aggravation of problem, need for additional treatment, and other risks of anesthesia, including fatal reaction. All questions were answered and the patient voiced understanding. The patient agrees to the planned procedure. PROCEDURE: The patient was taken to the operating room in good condition and placed supine on the operating table. Monitored anesthesia was performed by the anesthesia department. Local anesthetic was then . Time was then allowed for its hemostatic and anesthetic effects. The patient was sterilely prepped and draped. After anesthesia, the elevated lesion was excised, lesion of interest with a 2 mm of normal border surrounding the lesion site. The excision extended out first temporally for approximately 8 mm, and the medial edge of the excision included portion of the corneal scleral limbus, where a blade was used to excise it out completely. The specimen was flattened on a Telfa, and it was sent for pathological analysis. Then the area was then undermined, and multiple buried 6-0 plain gut suture was used to close the wound x2. given cicatrix present,, additional 0.8 cc of conjunctival 5 fu was injected over the area. . ointment was then applied over the eye. Patient tolerated the procedure well without any complications.Th e patient tolerated the procedure well without any complications and was transferred to the waiting room in good condition. Details and postoperative instructions were given to the patient and family. The patient will follow up in one week's time, sooner if problems arise. gsu Not available 11/05/2023 16:12:34 Plan of Treatment Reminders Order Date Submit Date Provider Last Modified By Organization Details Last Modified Time Details Appointments None record ed. Lab None record ed. Referral None record ed. Procedures None record ed. Surgeries None record ed. Imaging None record ed. Medication Orders None record ed. Patient TargetsNo targets recorded. Patient InstructionsNo instructions recorded. Reason for Referral None Reported. Results Created Date Observation Date Name Description Value Unit Range Abnormal Flag Note LastModifiedBy Organization Detail LastModifiedTime 11/05/19 24 11/07/2023 surgi carola patho logy study tissue exam [facility] [address],[place] [address] Ph. [phone] Ole Rosenberg MD, PhD, Medic al Direc SIRI Hanna MD nt: RANDI CAMILO e ID: [id number] Repor t Statu s: Final :1 1969 Case #: [id number] Age: 53 Y Gende r: M Date Colle cted: 11/04 MRN # : [id number] Date Recei nova: 11/04 Repor rosangela Date: 11/06 FINAL DIAGN OSIS: Conju nctiv a, left, excis ion: - Focal ly dilat ed lymph atics - No evide nce of yanet prieto - See comme nt Comme nt: A lymph angio ma canno t be exclu ded. Elect liudmila edwards Verif ied by Yojana Cardozo MD Elect liudmila Bowens mariza 11/06 09:40 SPECI MEN SOURC E: Conju nctiv a, left, excis ion GROSS DESCR IPTIO N: The speci men conta iner( s) and requi sitio n have the same patie nt name. Recei nova in 10% neutr al buffe red forma meena for forma meena-f ixed paraf fin-e mbedd ed secti ons label ed A, left conju nctiv al lesio n is an unori ented 1.0 x 0.6 cm fragm ent of moss- flores mucos al mater ial excis ed to a depth of 0.1 cm. There is no defin ite lesio n ident ified gross ly. The speci men is inked , trise cted, and entir rupert submi tted for histo logic study in one casse tte. [facility] MATIO N: Left conju nctiv al lesio n. Conju nctiv al granu faye. Not Available [facility] [address], [address], 11/07/2023 10:46:06 Result Notes None recorded. Problems Name Problem SNOMED Code Status Onset Date Resolution Date Notes Provider Name and Address Organization Details Recorded Time Lesion of conjunctiva [id number] 06 Active 2023 Lea Winston [place], [place] - [facility] 4 17:19:37 Problem Notes None recorded. Medical Equipment None Reported. Allergies No known drug allergies Medications Name Sig Start Date Stop Date Status Note LastModified by Organization Details LastModified Time stool soft [id number]-6.6m g tab TAKE 1 TABLET BY MOUTH TWICE DAILY NEEDED FOR CONSTIPATIO N active Not Available Not Available No t Available ibuprofen 800 mg tablet TAKE 1 TABLET BY MOUTH THREE TIMES DAILY NEEDED FOR PAIN active Not Available Not Available No t Available ondansetron 8 mg disintegrati ng tablet DISSOLVE 1 TABLET IN MOUTH EVERY 8 HOURS NEEDED FOR NAUSEA AND VOMITING active Not Available Not Available No t Available hydrocodone 7.5 mg-acetamino phen 325 mg tablet TAKE 1 TABLET BY MOUTH EVERY 6 HOURS NEEDED FOR PAIN active Not Available Not Available No t Available erythromycin 5 mg/gram (0.5 %) eye ointment active Not Available Not Available Not Available omeprazole 20 mg capsule,reji yed release TAKE 1 CAPSULE BY MOUTH ONCE DAILY active Not Available Not Available No t Available tobramycin 0.3 %-dexamethas one 0.1 % eye drops,suspen mag INSTILL 1 DROP INTO LEFT EYE 4 TIMES DAILY DIRECTED active Not Available Not Available Not Available Vitals None Recorded Social History Question Answer Notes LastModified by Organizat ion Details LastModified Time Do You Have An Advance Directive? No [email or web address] Information not available 09/17/2023 What Is Your Level Of Alcohol Consumption? Occasional [email or web address] Information not available 09/17/2023 How Many Times Per Week Do You Consume Alcohol? Less Than 1 Time Per Week [email or web address] Information not available 09/17/2023 What Is Your Level Of Caffeine Consumption? Occasional [email or web address] Information not available 09/17/2023 Are You Currently Employed? Yes [email or web address] Information not available 09/17/2023 What Is Your Occupation? [employer] [email or web address] Information not available 09/17/2023 How Many Times Per Week Do You Exercise? 3-4 Times Per Week [email or web address] Information not available 09/17/2023 How Many Packs Per Day (PPD)? 1 Pack Per Day [email or web address] Information not available 09/17/2023 How Long Have You Smoked? 35 Years [email or web address] Information not available 09/17/2023 Do You Have A Medical Power Of Cash Accountant? No [email or web address] Information not available 09/17/2023 What Was The Date Of Your Most Recent Tobacco Screening? 09/19/2023 [email or web address] Information not available 09/17/2023 What Is Your Relationship Status? [email or web address] Information not available 09/17/2023 Do You Use Any Illicit Or Recreational Drugs? No [email or web address] Information not available 09/17/2023 Sex: Unknown Functional Status Question Answer Note LastModified by Organization D etails LastModified Time What is your exercise level? Moderate [email or web address] Information not available 09/17/2023 Mental Status None recorded. Family History Relationship Description Onset Age of this Age Resolved Age Notes LastModified by Organization Details LastModified Time Mother Family history of malignant neoplasm [email or web address] Not available 2023 11:49:00 Father Family history of malignant neoplasm [email or web address] Not available 2023 11:49:01 Medical History Condition Response Diabetes N Anxiety Disorder N Bleeding Disorder N Attention-deficit Hyperactivity Disorder N High Blood Pressure N Arthritis N Hyperlipidemia N Cancer N Stroke N Thyroid Problems N Asthma Y Depression N COPD N Anemia N Seizures N Heart Disease N Fibromyalgia N Osteoporosis N Kidney Disease N Past Encounters Encounter ID Performer Location Encounter Start Date Encounter Closed Date Diagnosis/Indication Diagnosis SNOMED-CT Code Diagnosis ICD10 Code Diagnosis Note [id number] Jovanna Contreras MD [facility] [place] [facility] ([place] [address] [place] [phone] 11/05/2023 11:51:21 11/18/2023 10:34:27 [id number] Siri Lamar MD [facility] Ophthalmo logy ([place]) [address] [place] [address], [address] [place] [address] 11/05/2023 11:51:23 11/18/2023 09:34:56 Health Concerns Section Related Observation LastModified by Organization Detai ls LastModified Time None Recorded Concern Status LastModified by Organization Details LastModified Time None Recorded Advance Directives Directive N: Payers Encounter Date Sequence Insurance Name Policy Number Policy Stringer Covered Member ID Stringer Member ID Guarantor Name 11/05/2023 1 R [id number] Claire Kelly [id number] Oumar Kelly 11/05/2023 1 R [id number] Claire Kelly [id number] Oumar Kelly Notes Date Note Type Note Provider Name and Address Organization Details Recorded Time 11/05/2023 text/html [facility] PRE-ANEST HETIC EVALUATIONReported bypatient.Reason for Visit:PROPOSED PROCEDURE: LEFT CONJUNCTIVAL LESION EXCISION & LEFT CONJUNCTIVAL 5 FU STEROID INJECTION; SURGEON: Brianda; PREOP DIAGNOSIS: Conjunctival granuloma, left eye- Review of Systems General:Exercise tolerance moderate; Denies SOB, BRASHER, PND; Denies chest pain or chest tightness Pulmonary:Smoking Hx, ppd years Prior Anesthetic Complication:no history of anesthesia complications Family Anesthetic Hx:no history of anesthesia complications Testing/ResultsEKG Date: Result: Physical Exam: AirwayWNL; MP II TeethDentures upper and lower NeckWNL; Full range of motion CardiovascularRegular rate and rhythm RespiratoryClear to auscultation bilaterally GastrointestinalNPO status >6 hrs solids, >2 hrs clear liquids Vital Signs:Vital signs reviewed. Please refer to nursing preop note for values Assessment:ASA PS: II Plan:MAC Discussion:I have discussed with the patient the anesthetic plan, alternatives, pertinent risks, and complications; including but not limited to PONV, dental injury, sore throat, WA, stroke, etc. All questions were answered. Patient verbalize(s) understanding and agree(s) to proceed. Jovanna Contreras MD [address] [place] [address], [phone], [facility] 11/05/2023 12:20:47
--- OUTSIDE RECORDS SUMMARY | 2024-04-28 00:17 | XMS_ITS | Encounter Summary ---
Author Organization [facility] Address [address] [place] [address]. 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
--- OUTSIDE RECORDS SUMMARY | 2024-04-28 00:18 | XMS_ITS | Clinical Summary ---
Author Organization [facility] Address [address] [place] [address]. [place], [place] [id number] [place] [id number] Care Team Providers Care Field Service Engineer Name Role Phone Marty Donaldson MD Primary Care Provider Moshe Lane MD Unavailable Unavailab le Allergies No known active allergies Medications No known medications Active Problems No known active problems Family History Medical History Relation Comments Stroke Brother Relation Status Comments Brother Social History Tobacco Use Types Packs/Day Years Used Date Smoking Tobacco: Every Day Sex and Gender Information Value Date Recorded Sex Assigned at Not on file Legal Sex Male 12:31 PM CDT Gender Identity Not on file Sexual Orientation Not on file 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 file Not on file Not on harinder e Last Filed Vital Signs Vital Sign Reading Time Taken Comments Blood Pressure 128/80 04/11/2016 9:08 AM SALES REP Pulse 71 04/11/2016 9:08 AM SALES REP Temperature - - Respiratory Rate 16 04/11/2016 9:08 AM SALES REP Oxygen Saturation 93% 04/11/2016 9:08 AM SALES REP Inhaled Oxygen Concentration - - Weight 74.8 kg (165 lb) 04/11/2016 9:08 AM SALES REP Height 170.2 cm (5' 7 ) 04/11/2016 9:08 AM SALES REP Body Mass Index 25.84 04/11/2016 9:08 AM SALES REP Plan of Treatment Health Maintenance Due Date Last Done Comments Colorectal Cancer Screening Colonoscopy (10 Years) 1968 Annual Physical 1971 Pneumococcal Vaccine: Pediat rics (0 to 5 Years) and At-Risk Patients (6 to 64 Years) (1 of 2 - PCV) 1974 Hepatitis C 1986 DTaP, Tdap and Td Vaccines ( 1 - Tdap) 1987 Hepatitis B Vaccines (1 of 3 - 19+ 3-dose series) 1987 Zoster Vaccines (1 of 2) 2018 COVID-19 Vaccine (1 - 2023-2 5 season) 2023 Influenza Adult (#1) 2023 Meningococcal B Vaccine Aged Out No l onger eligible based on patient's age to complete this topic Meningococcal Vaccine Aged Out No elvis wendie eligible based on patient's age to complete this topic RSV Immunizations Under 20 Months Aged Out No longer eligible based on patient's age to complete this topic Insurance [employer] Care Teams Field Service Engineer Relationship Specialty Start Date End Date [place] [address] PCP - General FAMILY PRACTICE 01/09/[address] MD [address] [place] [address] CARDIOVASCULAR DISEASE 01/09/16
[2024-04-28 09:46] VITALS: BP 137/98; PULSE 76; RESP 16; TEMP 36.1; O2SAT 98; BMI 25.6
[2024-04-28] MEDS: LACTATED RINGERS 1,000 ML 150 ML IV CONT (09:57)
--- NOTE | 2024-04-28 11:00 | PM.IMHP ---
H&P: HPI History of Present Illness Date/Time: 04/28/24 11:00 Chief Complaint: GERD-screening colonoscopy Narrative: this patient has been suffering from acid reflux for several years, currently controlled with omeprazole 20 mg which he takes once a day. He denies dysphagia or unintentional weight loss. In addition, he is due for his 1st screening colonoscopy. There is no family history of colorectal cancer. Review of Systems Review of Systems: All systems reviewed & are unremarkable except as noted in HPI and below PMFSH Past Medical History Medical History (Updated 04/28/24 @ 11:02 by Barry Limon MD) COPD (chronic obstructive pulmonary disease) RBBB Arrhythmia Tear of meniscus of right knee Closed fracture of lateral portion of right tibial plateau Asthma Family History Family History Unknown Diabetes mellitus Cerebrovascular accident Lung disease Social History Social History Smoking packs per day: 1 Smoking cigarettes per day: 20.0 Years smoked: 40 Smoking pack-years: 40.00 Smoking status: Former smoker Tobacco type: cigarettes Alcohol intake: never Alcohol use details: RARE Substance use: never Substance use type: does not use Living arrangements: with family Occupation/Education: occupation Additional occupation/education comments: [employer] Gender identity (if verbalized by the patient): Male Sexual Orientation (if Verbalized by the Patient): Straight or Heterosexual Spiritual care concerns: No Meds Home Medications and Allergies Home Medications ?Medication ?Instructions ?Recorded ?Confirmed ?Type ibuprofen 800 mg tablet 800 mg PO TID PRN pain #30 tabs 03/21/23 04/15/24 Rx omeprazole 20 mg capsule,delayed 20 mg PO DAILY 12/13/23 04/28/24 History release Allergies Allergy/AdvReac Type Severity Reaction Status Date / Time No Known Allergies Allergy Verified 04/28/24 09:44 Vital Signs Vital Signs - 24 hr 04/28/24 09:46 Temperature 97 F L Pulse Rate 76 Respiratory Rate 16 Blood Pressure 137/98 H Pulse Oximetry 98 Oxygen Delivery Room Air Exam Const: General: cooperative and healthy appearing Resp: Effort & Inspection: normal respiratory effort and able to speak in complete sentences Auscultation: clear to auscultation bilaterally Cardio: Rate: regular rate Rhythm: regular rhythm GI: Inspection: normal to inspection GI Palp: No No hepatosplenomegaly present Auscultation: normal bowel sounds Rectal Exam: deferred Skin: General skin exam: normal color Psych: Appearance: grossly normal Mental Status: mental status grossly normal Assessment and Plan Assessment and plan (1) GERD (gastroesophageal reflux disease): Code(s): K21.9 - Gastro-esophageal reflux disease without esophagitis Status: Acute (2) Encounter for screening colonoscopy: Code(s): Z12.11 - Encounter for screening for malignant neoplasm of colon Status: Acute Assessment and Plan: The patient is deemed a good candidate for the procedures. Consent signed. Will proceed.
[2024-04-28] MEDS: BENZOCAINE (*SP) 60 ML SPRAY CAN (HURRICAINE) 1 SPRAY MUCOUS MEM (11:10)
--- NOTE | 2024-04-28 11:37 | SUR.OPER ---
EGD START TIME 1111, END TIME 1117. COLONOSCOPY START TIME 1122, END TIME 1136.
[2024-04-28 11:41] VITALS: BP 113/74; PULSE 74; RESP 21; O2SAT 100
[2024-04-28 11:51] VITALS: BP 136/86; PULSE 61; RESP 18; O2SAT 100
[2024-04-28 12:01] VITALS: BP 122/82; PULSE 62; RESP 18; O2SAT 100
== END 2024-04-28 12:15 | disposition home or self-care (01) ==
PROVIDERS: PCP Family Medicine; Visit Provider Internal Medicine Gastroenterology
PROC: 0DJD8ZZ Inspection of Lower Intestinal Tract, Via Natural or Artificial Opening Endoscopic (ICD-10-PCS; CPT 45378; principal; 2024-04-28 10:30)
PROC: 0DJ08ZZ Inspection of Upper Intestinal Tract, Via Natural or Artificial Opening Endoscopic (ICD-10-PCS; CPT 45378; 2024-04-28 10:30)
DX: Z12.11 Encounter for screening for malignant neoplasm of colon (principal); K29.50 Unspecified chronic gastritis without bleeding; K21.9 Gastro-esophageal reflux disease without esophagitis; Z87.891 Personal history of nicotine dependence
CPT/HCPCS: 45378; 43239; 88305; 88342; J2003; J2704; J7120